=== PATIENT | female | born 1940 | race Caucasian/White ===

== ENCOUNTER 2016-06-02 07:59 | Outpatient (CLI) | payer MEDICARE, BC ==
[~2016-06-02] VITALS: Ht 170.2 cm; Wt 73.0 kg
[~2016-06-02 07:59] MED LIST: BETAPACE 80MG80 MG PO; COUMADIN 22.5 MG/TAB PO; COUMADIN 5MG5 MG/TAB PO; FISH OIL500 MG PO; HYZAAR 50-12.1 UDTAB PO; MULTAQ400 MG PO; NEXIUM 40MG40 MG PO; PREMARIN .3MG0.3 MG PO; THERA-D 20002000 IU PO; TOPROL XL 25MG25 MG PO; VITAMIN B COMPL1 TA1 PO
[2016-06-02] MEDS ORDERED: COUMADIN 5MG5 MG/TAB PO (08:23)
[2016-06-02] MEDS ORDERED: NITROSTAT0.4 MG/TAB SL (08:24)
[2016-06-02] MEDS ORDERED: NORVASC2.5 MG PO (08:27)
[2016-06-02] MEDS ORDERED: ASPIRIN E.C. 8181 MG PO (08:28)
[2016-06-02 08:30] VITALS: BP 169/82; PULSE 59; TEMP 97.3
[2016-06-02] MEDS ORDERED: CEPHALEXIN500 M1 PO (10:02)
[2016-06-02 10:10] VITALS: BP 151/59; PULSE 54; TEMP 97.5
[2016-06-02 10:30] VITALS: BP 174/71; PULSE 54; TEMP 97.5
== END 2016-06-02 14:11 | disposition home or self-care (01) ==
LOC: EUO 07:59 → COL.RAD 08:15 → EUO 08:15
DX: I48.0 Paroxysmal atrial fibrillation (principal); R94.31 Abnormal electrocardiogram [ECG] [EKG]; R07.89 Other chest pain; I10 Essential (primary) hypertension; Z82.49 Family history of ischemic heart disease and other diseases of the circulatory system
CPT/HCPCS: 27124; C1764

== ENCOUNTER → 2016-07-20 | Outpatient (CLI) | payer MEDICARE, BC ==
[~2016-07-20] MED LIST changes: +ASPIRIN E.C. 8181 MG PO; +CEPHALEXIN500 M1 PO; +NITROSTAT0.4 MG/TAB SL; +NORVASC2.5 MG PO
== END ==
LOC: MC.RAD 13:40
DX: Z12.31 Encounter for screening mammogram for malignant neoplasm of breast (principal)

== ENCOUNTER 2016-08-19 08:02 | Day surgery (SDC) | payer MEDICARE, BC ==
[~2016-08-19] VITALS: Ht 170.2 cm; Wt 72.7 kg
[2016-08-19] VITALS (11 sets, daily range): BP systolic 118–146; BP diastolic 58–74; PULSE 50–58; TEMP 97.6
[2016-08-19 09:04] LABS: HEMATOCRIT 37.7 % (37.0-47.0); HEMOGLOBIN 12.6 g/dl (12.5-16.0); MEAN CELL VOLUME 90 fl (80.0-100.0); MEAN CORPUSCULAR HEMOGLOBIN 30 pg (27.0-31.0); MEAN CORPUSCULAR HGB CONC 33 g/dl (33.0-37.0); MEAN PLATELET VOLUME 10.9 fl (7.4-10.4); PLATELET COUNT 226 K/mm3 (130-400); RED BLOOD COUNT 4.17 M/mm3 (4.10-5.30); REDCELL DISTRIBUTION WIDTH-CV 12.9 % (11.5-14.5); WHITE BLOOD COUNT 7.4 K/mm3 (4.8-10.8)
[2016-08-19 09:20] LABS: CALCIUM 8.8 mg/dL (8.4-10.2); CREATININE, serum 1.06 mg/dL (0.52-1.25); POTASSIUM 3.3 mmol/L (3.4-5.0)
[2016-08-19 10:17] LABS: INR 1.7 (0.8-3.0); PROTHROMBIN TIME 18.9 SECONDS (9.7-12.8)
== END 2016-08-19 16:02 | disposition home or self-care (01) ==
LOC: COL.CAR 08:02
PROVIDERS: Internal Medicine Cardiovascular Disease
DX: R06.00 Dyspnea, unspecified (principal); I20.9 Angina pectoris, unspecified; I10 Essential (primary) hypertension; I48.91 Unspecified atrial fibrillation
CPT/HCPCS: C1760; J2250; J3010; Q9967

== ENCOUNTER → 2018-08-25 | Outpatient (CLI) | payer MEDICARE, BC | LOC: MC.RAD 14:26 | DX: Z12.31 Encounter for screening mammogram for malignant neoplasm of breast (principal) ==

== ENCOUNTER 2021-09-10 12:28 | Emergency (ER) | payer MEDICARE, BC ==
[~2021-09-10] VITALS: Ht 167.6 cm; Wt 59.1 kg
[2021-09-10 12:43] VITALS: TEMP 97.6
[2021-09-10 13:17] LABS: BASO % 0.3 % (0.0-2.0); EOS % 0.4 % (0.0-4.0); GRAN # 4.3 K/mm3 (1.4-6.5); GRAN % 63.1 % (42.2-75.2); HEMATOCRIT 41.2 % (37.0-47.0); HEMOGLOBIN 13.1 g/dl (12.5-16.0); LYMPH # 1.8 K/mm3 (1.2-3.4); LYMPH % 26.2 % (20.0-51.0); MEAN CELL VOLUME 91 fl (80.0-100.0); MEAN CORPUSCULAR HEMOGLOBIN 29 pg (27-31); MEAN CORPUSCULAR HGB CONC 32 g/dl (33.0-37.0); MEAN PLATELET VOLUME 10.5 fl (7.4-10.4); MONO # 0.7 K/mm3 (0.1-0.6); MONO % 9.7 % (1.7-9.3); PLATELET COUNT 227 K/mm3 (130-400); RED BLOOD COUNT 4.53 M/mm3 (4.10-5.30); REDCELL DISTRIBUTION WIDTH-CV 13.3 % (11.5-14.5)
[2021-09-10 13:37] LABS: ALBUMIN 3.7 gm/dL (3.4-4.8); BILIRUBIN,TOTAL 0.5 mg/dL (0.2-1.2); CREATININE, serum 0.92 mg/dL (0.57-1.11); POTASSIUM 3.7 mmol/L (3.5-4.5); TOTAL PROTEIN 7.7 gm/dL (6.2-8.1)
[2021-09-10 13:55] LABS: COLLECTION METHOD CLEAN CATCH
[2021-09-10 14:09] LABS: AMORPHOUS CRYSTAL Present (NOT PRESENT); PH 6 (5-8); URINE APPEARANCE Hazy (CLEAR/HAZY); URINE BACTERIA Moderate /hpf (NONE SEEN); URINE BILIRUBIN Negative (NEGATIVE); URINE BLOOD 1+ (NEGATIVE); URINE COLOR Straw (YELLOW); URINE GLUCOSE Negative (NEGATIVE); URINE KETONE Negative (NEGATIVE); URINE LEUKOCYTE ESTERASE Negative (NEGATIVE); URINE NITRATE Negative (NEGATIVE); URINE PROTEIN(semi-quant) Negative (NEGATIVE); URINE UROBILINOGEN Negative (NEGATIVE)
[2021-09-10 14:57] VITALS: BP 159/78; PULSE 80
== END 2021-09-10 14:57 | disposition home or self-care (01) ==
LOC: COL.ER 12:28
PROVIDERS: Family Medicine
DX: I10 Essential (primary) hypertension (principal)
CPT/HCPCS: J0360

== ENCOUNTER → 2021-11-07 | Outpatient (CLI) | payer MEDICARE, BC | LOC: COL.RAD 12:12 | DX: N28.1 Cyst of kidney, acquired (principal) ==

== ENCOUNTER → 2022-06-23 | Outpatient (CLI) | payer MEDICARE, BC | LOC: COL.RAD 16:02 | DX: N28.1 Cyst of kidney, acquired (principal) ==